=== PATIENT | female | born 1970 | race Caucasian/White ===

== ENCOUNTER 2020-05-25 17:07 | Outpatient (CLI) | payer SELFPAY | END 2020-05-25 17:08 | disposition home or self-care (01) | LOC: LAB 17:09 | PROVIDERS: PCP Nurse Practitioner Family; Visit Provider Nurse Practitioner Family | DX: D03.72 Melanoma in situ of left lower limb, including hip (principal) | CPT/HCPCS: 88305 ==

== ENCOUNTER 2020-06-08 07:00 | Day surgery (SDC) | payer SELFPAY ==
[2020-06-05 12:12] VITALS: BMI 22.4
[2020-06-08] MEDS: sodium chloride 0.9% 1,000 ML 30 ML IV (07:32)
--- NOTE | 2020-06-08 07:36 | ANES.PREANE2 ---
Pre-Anesthetic Assessment Pre-Anesthetic Assessment: Height/Weight: Height 1.65 m Weight 61.235 kg Preop Diagnosis: Melanoma left thigh Proposed Procedure: Operation Date: 06/08/20 08:25 Proposed Procedures p Wide Excision of left thigh melanoma 27421 C43.9(Left) - Mac Oliveira MD Last intake: Intake Last Liquid Date 06/07/20 Last Liquid Time 22:30 Last Solid Date 06/07/20 Last Solid Time 22:30 Social: Social History: No alcohol and No tobacco Exam: Pre-Anes Outpt Exam: alert, oriented x 3, clear to auscultation bilaterally and regular rate & rhythm Airway: Submandibular: WNL Cervical ROM: WNL MP: 2 Dentition: Other (teeth ok) History/ROS: No significant history except as noted Pulmonary: Pulmonary: None reported CV/HEM: CV/HEM: None reported : : None reported Hepatic: Hepatic: None reported GI: GI: None reported Metabolic: Metabolic: None reported Musc/skel: Comments: h/o melanoma Neuropsych: Neuropsych: Anxiety Anesthetic Plan: ASA status: 2 Anesthesia: Anesthesia Evaluation, General and MAC Risk of > 500 ml blood loss (7ml/kg in children): No Meds/Allergies Current Medications: Current Medications Generic Name Dose Route Start Last Admin Trade Name Freq PRN Reason Stop Dose Admin Sodium Chloride 1,000 mls @ 30 ml s/hr 06/08/20 07:30 06/08/20 07:32 Sodium Chloride 0.9% IV 06/09/20 07:29 30 mls/hr .Q24H MONIQUE Administration PFSH Anesthesia PFSH: Medical History Melanoma Surgical History History of dilatation and curettage History of laparoscopic cholecystectomy Status post tonsillectomy Family History Denies family history of Anesthesia complication Bleeding disorder Social History Smoking and tobacco status: never smoked Data Anesthesia Cardiac Studies: No Data to Display
--- NOTE | 2020-06-08 08:27 | W.PM.OPSUD ---
Surgery/Procedure H&P Update DATE OF PROCEDURE: June 08, 2020 DATE H&P PERFORMED: 06/01/20 H&P UPDATE INFORMATION: I have reviewed H&P completed within last 30 days, I have examined patient prior to procedure and No changes to prior documentation PREOP DIAGNOSIS: Melanoma left thigh PRIMARY INDICATION FOR PROCEDURE: The same PLANNED PROCEDURE: Operation Date: 06/08/20 08:25 Proposed Procedures p Wide Excision of left thigh melanoma 32265 C43.9(Left) - Mac Oliveira MD
[2020-06-08] MEDS: lidocaine 2% INJ 20 mL INJECTION (09:00)
--- NOTE | 2020-06-08 09:27 | PM.OP ---
Operative Report Date of procedure: June 08, 2020 Pre-op Diagnosis: Melanoma left thigh Post-op diagnosis: same Post-op Findings: Lesion excised with surrounding induration measures 3.1 x 1.9 cm Procedure Done: Wide local excision of left thigh melanoma with 0.5 to 1 cm margin Specimens removed/disposition: Left thigh melanoma specimen marked short suture superior and long sutures marked lateral Specimen measured approximately 8 x 3 x 2 cm Surgeon: Mac Oliveira Emotionally Impaired Teacher: Bal Chairez Circulating nurse Lili Anesthesia: General (LMA squash centre manager Mayank) Estimated blood loss (mL): 10 Condition: stable Disposition: same day Brief History: This is a pleasant 50 years old female patient was recently had excisional biopsy of left thigh lesion that 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 After thorough history physical examination and reviewing the chart I did nurses' association counselor the patient for wide local excision with appropriate margin in the OR. Informed consent per chart Procedure: Patient was identified in the holding area and the left lower extremity was marked by me in the presence of female dishwasher Corinne,patient was then taken to the OR suite where she was placed in supine position and undergone intubation by anesthesia provider . Timeout was done verifying the patient's name procedure and destination after the procedure and all were in agreement. IV antibiotics was given per protocol and beta-karissa was revised Prep and drape of the left thigh was done under the usual sterile technique skin incision was made that encompassed the previous biopsy site with at least 0.5-1.0 cm margin and the previous biopsy scar passed in a generous elliptical direction, the whole skin and subcutaneous layer including the previous biopsy site was marked by short suture superior and long suture lateral and passed to the circulating nurse for permanent pathology Hemostasis was achieved, undermining of the medial and lateral flaps were done to accommodate closure without tension,the wound was copiously and thoroughly irrigated. The wound was then closed using deep subdermal 2-0 Vicryl , followed by continuous 2-0 nylon followed by triple antibiotic ointment and dry dressing in the form of ABD Kerlix and Victor Manuel wrap. Counts of sponges, needles and instruments were completed at the end of the procedure I was present for the whole entire procedure. Patient was then extubated and taken to the recovery room in stable condition
[2020-06-08 09:29] VITALS: BP 111/86; PULSE 62; RESP 16; TEMP 36.6; O2SAT 96
--- NOTE | 2020-06-08 09:33 | SUR.PHASEI ---
0933- ORAL AIRWAY OUT, SIMPLE MASK IN PLACE AT 10LPM, SAT 100%
[2020-06-08 09:35] VITALS: BP 134/91; PULSE 79; RESP 15; O2SAT 100
[2020-06-08 09:40] VITALS: BP 135/92; PULSE 64; RESP 16; TEMP 36.6; O2SAT 96
[2020-06-08 09:43] VITALS: BP 119/85; PULSE 72; RESP 16; TEMP 36.6; O2SAT 98
[2020-06-08 09:58] VITALS: BP 135/84; PULSE 65; RESP 16; TEMP 36.6; O2SAT 97
== END 2020-06-08 10:15 | disposition home or self-care (01) ==
PROVIDERS: Visit Provider Surgery
PROC: (CPT 11606; principal; 2020-06-08 08:15)
DX: C43.72 Malignant melanoma of left lower limb, including hip (principal)
CPT/HCPCS: 11606; 12034; 12345; 88305; J0131; J0690; J2704; J3010; J7030

== ENCOUNTER → 2020-06-09 15:53 | Outpatient (BNVA) | payer SELFPAY | PROVIDERS: Visit Provider Dermatology | DX: C43.9 Malignant melanoma of skin, unspecified (principal); D48.9 Neoplasm of uncertain behavior, unspecified; L82.1 Other seborrheic keratosis | CPT/HCPCS: 99203; 99204 ==

== ENCOUNTER → 2020-06-22 09:55 | Outpatient (BNVA) | payer SELFPAY | PROVIDERS: Visit Provider Dermatology | DX: D48.9 Neoplasm of uncertain behavior, unspecified (principal); Z85.820 Personal history of malignant melanoma of skin; L72.0 Epidermal cyst; D22.9 Melanocytic nevi, unspecified | CPT/HCPCS: 10040; 11104; 88304; 88305; 99213 ==

== ENCOUNTER → 2020-07-06 12:59 | Outpatient (BNVA) | payer SELFPAY | PROVIDERS: Visit Provider Dermatology | DX: Z48.02 Encounter for removal of sutures (principal) | CPT/HCPCS: 99212 ==

== ENCOUNTER 2020-07-07 14:34 | Outpatient (CLI) | payer SELFPAY ==
[2020-07-07 15:32] LABS: Basophils # 0.1 10^3/uL (0.0-0.1); Basophils % 0.8 %; Eosinophils # 0.1 10^3/uL (0.0-0.8); Eosinophils % 1.7 %; Lymphocytes # 1.5 10^3/uL (0.8-4.8); Lymphocytes % 25.5 %; Mean Corpuscular HGB Conc 32.6 g/dL (30.0-36.0); Mean Corpuscular Hemoglobin 29.6 pg (28.0-34.0); Mean Corpuscular Volume 90.9 fL (81-99); Mean Platelet Volume 10.2 fL (7.4-10.4); Monocytes # 0.6 10^3/uL (0.2-0.9); Monocytes % 9.8 %; Neutrophils # 3.67 10^3/uL (1.8-7.7); Nucleated Red Blood Cells % 0 %; Platelet Count 325 10^3/cmm (130-400); Red Blood Count 4.73 10^6/uL (4.1-5.3); Red Cell Distribution Width 12.4 % (12.1-15.1); White Blood Count 5.9 10^3/uL (4.0-10.0)
[2020-07-07 15:56] LABS: 25 Hydroxy Vitamin D 67 ng/mL (30-100); Alanine Aminotransferase 18 U/L (0-33); Albumin Level 4.6 g/dL (3.5-5.2); Alkaline Phosphatase 63 IU/L (35-105); Anion Gap 15.2 (5-19); Aspartate Amino Transferase 15 U/L (0-32); Blood Urea Nitrogen 15 mg/dL (6-20); Carbon Dioxide 24 mmol/L (22-29); Chloride 106 mmol/L (98-107); Follicle Stimulating Hormone 11.6 mIU/mL; Globulin 2.2 g/dL (1.3-4.6); Glomerular Filtration Rate 66.5 mL/min (90-130); Glucose 98 mg/dL (65-115); Osmolality Calculated 288 mOsm/kg (285-295); Potassium 4.2 mmol/L (3.5-5.1); Sodium 141 mmol/L (136-145); Thyroid Stimulating Hormone 1.44 uIU/mL (0.27-4.20); Total Bilirubin 0.3 mg/dL (0.15-1.2); Total Protein 6.8 g/dL (6.6-8.7)
== END 2020-07-07 14:35 | disposition home or self-care (01) ==
LOC: LAB 14:35
PROVIDERS: Visit Provider Family Medicine
DX: R53.83 Other fatigue (principal)
CPT/HCPCS: 80053; 82306; 83001; 84443; 85025

== ENCOUNTER → 2020-07-15 09:45 | Outpatient (BNVA) | payer SELFPAY | PROVIDERS: Visit Provider Dermatology | DX: C44.91 Basal cell carcinoma of skin, unspecified (principal); C44.712 Basal cell carcinoma of skin of right lower limb, including hip | CPT/HCPCS: 17263 ==

== ENCOUNTER → 2020-07-16 16:02 | Outpatient (BNVA) | payer SELFPAY | PROVIDERS: Visit Provider Dermatology | DX: L98.8 Other specified disorders of the skin and subcutaneous tissue (principal); Z41.1 Encounter for cosmetic surgery | CPT/HCPCS: J0585 ==

== ENCOUNTER → 2020-07-29 15:55 | Outpatient (BNVA) | payer SELFPAY | PROVIDERS: Visit Provider Dermatology | DX: L98.8 Other specified disorders of the skin and subcutaneous tissue (principal); Z41.1 Encounter for cosmetic surgery ==

== ENCOUNTER 2020-08-17 10:00 | Outpatient (CLI) | payer SELFPAY ==
--- NOTE | 2020-08-17 10:45 | FL_ITS ---
WS: [id number] FL upper GI w air* [id number] REASON FOR EXAM: R14.0 Abdominal distension (gaseous) FLUOROSCOPY TIME: 1.4 minutes FINDINGS: ESOPHAGUS: Small sliding hiatal hernia associated with intermittent mild tertiary contractions and re tention of barium. STOMACH: Normal size and contour. No mucosal abnormality. Normal peristalsis. DUODENUM: The duodenal bulb and duodenal sweep to the ligament of Treitz demonstrated no mucosal or m ural abnormality. FL/FL upper GI w air* [id number] IMPRESSION: Small sliding hiatal hernia with mild tertiary contractions as abov e.
== END 2020-08-17 10:01 | disposition home or self-care (01) ==
LOC: RAD 10:03
PROVIDERS: Visit Provider Surgery
DX: R14.0 Abdominal distension (gaseous) (principal); K44.9 Diaphragmatic hernia without obstruction or gangrene
CPT/HCPCS: 74246